=== PATIENT | female | born 1940 ===

== ENCOUNTER 2021-12-13 05:45 | Day surgery (SDC) | payer OTHER | END 2021-12-13 13:00 | disposition home or self-care (01) | LOC: AMB-ENDOS 05:45 | PROVIDERS: ATTEND Surgery | DX: D12.0 Benign neoplasm of cecum (principal); D12.3 Benign neoplasm of transverse colon; K57.30 Diverticulosis of large intestine without perforation or abscess without bleeding; Z20.822 Contact with and (suspected) exposure to COVID-19 ==

== ENCOUNTER 2022-01-12 12:30 | Inpatient (IN) | payer OTHER ==
[2022-01-12] MEDS ORDERED: AMLODIPINE-OLM1 EAC1 PO (13:44)
[2022-01-12] MEDS ORDERED: LOSARTAN-HCTZ1 EAC2 PO (13:45)
[2022-01-12] MEDS ORDERED: METFORMIN HCL500 M3 PO (13:45)
[2022-01-17] MEDS ORDERED: PROAIR HFA8.5 GM (07:59)
[2022-01-17] MEDS ORDERED: MIRALAX510 GM (07:59)
[2022-01-17] MEDS ORDERED: HYDROCHLOROTHIA25 MG (08:00)
[2022-01-17] MEDS ORDERED: LOSARTAN POTAS100 MG (08:00)
[2022-01-17] MEDS ORDERED: MONTELUKAST SOD10 MG (08:00)
[2022-01-17] MEDS ORDERED: AMLODIPINE-ATO1 EAC5 (08:00)
[2022-01-17] MEDS ORDERED: BENADRYL ALLERG25 MG (08:00)
[2022-01-17] MEDS ORDERED: HYDRALAZINE HCL25 MG (08:00)
[2022-01-17] MEDS ORDERED: FLONASE16 GM (08:00)
[2022-01-20] MEDS ORDERED: ULTRACET PO (12:01)
[2022-01-20] MEDS ORDERED: INTESTINEX680 M1 PO (12:02)
== END 2022-01-20 13:36 | disposition home or self-care (01) | DRG 331 ==
LOC: SURG 12:30 → O/R 01-17 06:00 → SURG 01-17 13:21
PROVIDERS: ADMIT Surgery; ATTEND Surgery
PROC: 07BB4ZZ Excision of Mesenteric Lymphatic, Percutaneous Endoscopic Approach (ICD-10-PCS; 2022-01-17)
PROC: 0DTF4ZZ Resection of Right Large Intestine, Percutaneous Endoscopic Approach (ICD-10-PCS; principal; 2022-01-17 07:00)
PROC: 02HV33Z Insertion of Infusion Device into Superior Vena Cava, Percutaneous Approach (ICD-10-PCS; 2022-01-18)
DX: D12.2 Benign neoplasm of ascending colon (principal); K57.30 Diverticulosis of large intestine without perforation or abscess without bleeding; I11.9 Hypertensive heart disease without heart failure; J45.20 Mild intermittent asthma, uncomplicated; C50.912 Malignant neoplasm of unspecified site of left female breast; E11.9 Type 2 diabetes mellitus without complications